=== PATIENT | female | born 1965 | race Caucasian/White ===

== ENCOUNTER 2020-12-08 13:48 | Emergency (ER) | payer OTHER ==
[~2020-12-08 13:48] MED LIST: CARAFATE1 GM PO; CENTRUM ADULTS1 EACH PO; HCTZ25 MG PO; NEXIUM20 M1 PO; PRINIVIL10 MG PO; VITAMIN B122500 MCG PO
[2020-12-08] MEDS ORDERED: TRAMADOL HCL50 MG PO (16:22)
== END 2020-12-08 17:08 | disposition home or self-care (01) ==
LOC: FER 13:48
DX: S56.221A Laceration of other flexor muscle, fascia and tendon at forearm level, right arm, initial encounter (principal); I10 Essential (primary) hypertension; Z88.0 Allergy status to penicillin; Z88.1 Allergy status to other antibiotic agents; Z88.8 Allergy status to other drugs, medicaments and biological substances; X58.XXXA Exposure to other specified factors, initial encounter
CPT/HCPCS: 99283